=== PATIENT | male | born 1950 | race African-American/Black ===

== ENCOUNTER 2020-03-22 13:42 | Inpatient (IN) | payer BC, OTHER ==
[2020-03-22] MEDS ORDERED: SODIUM CHLORIDE 2,000 ML IV STA (13:49)
[2020-03-22 14:32] LABS: VENOUS BASE EXCESS 0.9 mmol/L (-2-2); VENOUS O2 SATURATION 37.2 % (70-80); VENOUS PH 7.246 (7.310-7.410)
[2020-03-22 14:34] LABS: BASO % 0.4 % (0-2.0); EOS % 1.4 % (0-4.5); HEMATOCRIT 53.3 % (35.4-49); HEMOGLOBIN 16.4 GM/dL (11.7-16.9); LYMPH % 13.3 % (8-40); MCH 29.3 pg (25.7-33.7); MCHC 30.8 g/dl (32.0-35.9); MEAN CELL VOLUME 95.2 fl (80-96); MEAN PLT VOLUME 11.9 fl (7.5-11.1); MONO % 4.6 % (3.8-10.2); NEUT % 80.3 % (42.8-82.8); PLATELET COUNT 214 K/MM3 (134-434); RDW 14.2 % (11.9-15.9); WHITE BLOOD COUNT 10.8 K/mm3 (4.0-10.0)
[2020-03-22 14:35] LABS: VENOUS PCO2 73.2 mmHg (38-52)
[2020-03-22 14:47] LABS: INR 1.04 (0.83-1.09); PROTHROMBIN TIME (PATIENT) 12.8 SEC (9.7-13.0)
[2020-03-22 14:49] LABS: ACTIVATED PTT 28.9 SECONDS (25.2-36.5)
[2020-03-22 14:55] LABS: POTASSIUM 4.9 mmol/L (3.5-5.1)
[2020-03-22 14:57] LABS: ALBUMIN 2.8 g/dl (3.4-5.0); BLOOD UREA NITROGEN 51.9 mg/dL (7-18); CALCIUM 9.4 mg/dL (8.5-10.1)
[2020-03-22 14:58] LABS: BILIRUBIN,DIRECT 0.2 mg/dL (0.0-0.2)
[2020-03-22 15:01] LABS: BILIRUBIN,TOTAL 0.4 mg/dL (0.2-1); CREATININE 2.6 mg/dL (0.55-1.3); TOT PROT 7.8 g/dl (6.4-8.2)
[2020-03-22] MEDS ORDERED: INSULIN REGULAR HUMAN 100 UNITS/ML *VIAL* (FOR IVP) IVPUSH ONE (15:41)
[2020-03-22] MEDS ORDERED: INSULIN REGULAR 100 UNITS in SODIUM CHLORIDE 99 ML IVPB SCH (15:45)
[2020-03-22] MEDS ORDERED: KCL 20 MEQ IV SCH (16:00)
[2020-03-22] MEDS ORDERED: SODIUM CHLORIDE 0.45% IV SCH (16:00)
[2020-03-22 16:47] LABS: CALCIUM 9.4 mg/dL (8.5-10.1); POTASSIUM 4.8 mmol/L (3.5-5.1)
[2020-03-22 16:49] LABS: BLOOD UREA NITROGEN 52.9 mg/dL (7-18)
[2020-03-22 16:52] LABS: CREATININE 2.6 mg/dL (0.55-1.3)
[2020-03-22] MEDS ORDERED: SODIUM CHLORIDE 0.45% IV ONE ×2 (16:52→17:00)
[2020-03-22] MEDS ORDERED: KCL 20 MEQ IV ONE ×2 (16:52→17:00)
[2020-03-22] MEDS ORDERED: chlordiazePOXIDE HCL 25 MG CAPSULE PO PRN (17:55)
[2020-03-22] MEDS ORDERED: D5-1/2NS+20 MEQ KCL - 20 MEQ/1,000 ML INFUS.BAG IV SCH (19:00)
[2020-03-22] MEDS: HEPARIN NA (PORCINE) 5,000 UNITS/ML 1ML VIAL SQ SCH (20:19)
[2020-03-22] MEDS ORDERED: LACTATED RINGERS SOLUTION 1,000 ML with POTASSIUM CHLORIDE 20 MEQ IV ONE ×2 (21:12→21:15)
[2020-03-22] MEDS ORDERED: LACTATED RINGERS SOLUTION 1,000 ML/1,000 ML INFUS.BAG IV SCH (21:15)
[2020-03-22 21:48] LABS: ARTERIAL BLOOD GAS BASE EXCESS 3.4 mmol/L (-2-2); ARTERIAL BLOOD GAS PO2 41.3 mmHg (80-100); ARTERIAL BLOOD GAS pH 7.332 (7.350-7.450)
[2020-03-22 21:50] LABS: ALLENS TEST POSITIVE
[2020-03-22] MEDS ORDERED: ATORVASTATIN CA 10 MG TABLET (FP) PO SCH (22:00)
[2020-03-22] MEDS ORDERED: CHLORHEXIDINE GLUCONATE 4% CLEANSER FOR DECOLONIZATION TP SCH ×2 (22:00)
[2020-03-23] MEDS ORDERED: PREGABALIN 50 MG CAPSULE ONE (00:15)
[2020-03-23] MEDS ORDERED: ATORVASTATIN CA 10 MG TABLET (FP) ONE (00:16)
[2020-03-23] MEDS: PREGABALIN 50 MG CAPSULE PO SCH ×2 (00:18→10:05)
[2020-03-23 01:30] LABS: CALCIUM 8.6 mg/dL (8.5-10.1); POTASSIUM 4.6 mmol/L (3.5-5.1)
[2020-03-23 01:33] LABS: BLOOD UREA NITROGEN 59.2 mg/dL (7-18)
[2020-03-23 01:35] LABS: CREATININE 2.7 mg/dL (0.55-1.3)
[2020-03-23] MEDS ORDERED: INSULIN REGULAR HUMAN 100 UNITS/ML *VIAL* (FOR IVP) IVPUSH ONE (01:44)
[2020-03-23] MEDS ORDERED: INSULIN REGULAR 100 UNITS in SODIUM CHLORIDE 99 ML IVPB SCH (01:45)
[2020-03-23] MEDS: HEPARIN NA (PORCINE) 5,000 UNITS/ML 1ML VIAL SQ SCH ×4 (02:00→22:46)
[2020-03-23] MEDS ORDERED: LACTATED RINGERS SOLUTION 1000 ML INFUS.BAG IV ONE (02:57)
[2020-03-23] MEDS ORDERED: POTASSIUM CHLORIDE 20 MEQ PREMIX IVPB 100 ML IVPB ONE (03:27)
[2020-03-23] MEDS ORDERED: POTASSIUM CHLORIDE IV ONE (03:42)
[2020-03-23] MEDS ORDERED: LACTATED RINGERS IV ONE (03:42)
[2020-03-23 03:59] LABS: ARTERIAL BLD GAS O2 SATURATION 98.2 mmHg (95-98); ARTERIAL BLOOD GAS BASE EXCESS 3.3 mmol/L (-2-2); ARTERIAL BLOOD GAS PO2 126.8 mmHg (80-100); ARTERIAL BLOOD GAS pH 7.322 (7.350-7.450)
[2020-03-23 04:01] LABS: ALLENS TEST POSITIVE
[2020-03-23 04:15] LABS: URINE AMPHETAMINES NEGATIVE ng/ml (CUTOFF=500); URINE BENZODIAZEPINES NEGATIVE ng/ml (CUTOFF=200)
[2020-03-23 04:16] LABS: OPIATES, URI NEGATIVE ng/ml (CUTOFF=300); PHENCYCLIDINE,URINE NEGATIVE ng/ml (CUTOFF=25)
[2020-03-23 04:19] LABS: PH,URINE 5.5 (5.0-8.0); URINE APPEARANCE Clear; URINE BILIRUBIN 2+ (NEGATIVE); URINE COLOR Yellow; URINE GLUCOSE (UA) 2+ (NEGATIVE); URINE KETONE Trace (NEGATIVE); URINE LEUK ESTERASE Negative (NEGATIVE); URINE NITRITE Negative (NEGATIVE); URINE PROTEIN Trace (NEGATIVE); URINE UROBILINOGEN 0.2 mg/dL (0.2-1.0)
[2020-03-23 04:22] LABS: COCAINE, UR NEGATIVE ng/ml (CUTOFF=300); URINE BARBITURATES NEGATIVE ng/ml (CUTOFF=200)
[2020-03-23 04:39] LABS: METHADONE, UR POSITIVE ng/ml (CUTOFF=300)
[2020-03-23] MEDS ORDERED: METHADONE 40 MG, METHADONE 30 MG, METHADONE 5 MG PO SCH (06:00)
[2020-03-23] MEDS ORDERED: LACTATED RINGERS SOLUTION 1,000 ML with POTASSIUM CHLORIDE 20 MEQ IV ONE (06:35)
[2020-03-23] MEDS: MUPIROCIN 2% TOPICAL OINTMENT FOR DECOLONIZATION NS SCH ×2 (06:54→10:02)
[2020-03-23 07:20] LABS: ALLENS TEST POSITIVE; ARTERIAL BLOOD GAS BASE EXCESS 4.6 mmol/L (-2-2); ARTERIAL BLOOD GAS pH 7.334 (7.350-7.450)
[2020-03-23 07:27] LABS: BASO % 0.4 % (0-2.0); EOS % 1.6 % (0-4.5); HEMATOCRIT 46.1 % (35.4-49); HEMOGLOBIN 14.6 GM/dL (11.7-16.9); LYMPH % 17.4 % (8-40); MCH 29.4 pg (25.7-33.7); MCHC 31.8 g/dl (32.0-35.9); MEAN CELL VOLUME 92.5 fl (80-96); MEAN PLT VOLUME 11.7 fl (7.5-11.1); MONO % 11.8 % (3.8-10.2); NEUT % 68.8 % (42.8-82.8); PLATELET COUNT 168 K/MM3 (134-434); RBC 4.98 M/mm3 (4.00-5.60); RDW 13.6 % (11.9-15.9); WHITE BLOOD COUNT 13.4 K/mm3 (4.0-10.0)
[2020-03-23 07:53] LABS: ALBUMIN 2.4 g/dl (3.4-5.0); BLOOD UREA NITROGEN 57.6 mg/dL (7-18); CALCIUM 8.3 mg/dL (8.5-10.1); MAGNESIUM 3.7 mg/dL (1.8-2.4)
[2020-03-23 07:57] LABS: BILIRUBIN,TOTAL 0.3 mg/dL (0.2-1); CREATININE 3.2 mg/dL (0.55-1.3); TOT PROT 7.2 g/dl (6.4-8.2)
[2020-03-23] MEDS ORDERED: SODIUM CHLORIDE 0.45%/POT 20 MEQ/1,000 ML INFUS.BAG IV SCH (08:00)
[2020-03-23] MEDS ORDERED: DEXTROSE 5%-0.45% SALINE 1,000 ML IV SCH (08:45)
[2020-03-23 09:07] LABS: POTASSIUM 8.5 mmol/L (3.5-5.1)
[2020-03-23] MEDS ORDERED: METHADONE HCL 40 MG DISPERSABLE TABLET PO SCH (10:00)
[2020-03-23] MEDS: INSULIN SLIDING SCALE (NOVOLOG) 1 VIAL SQ SCH ×3 (10:07→22:48)
[2020-03-23 10:26] LABS: POTASSIUM 4.7 mmol/L (3.5-5.1)
[2020-03-23 11:28] LABS: ANISOCYTOSIS 2+; MACROCYTOSIS 0; PLATELET ESTIMATE DECREASED; ROULEAU 1+
[2020-03-23 12:22] LABS: CALCIUM 8.7 mg/dL (8.5-10.1)
[2020-03-23 12:24] LABS: BLOOD UREA NITROGEN 59.8 mg/dL (7-18)
[2020-03-23 12:26] LABS: CREATININE 2.9 mg/dL (0.55-1.3)
[2020-03-23] MEDS ORDERED: INSULIN SLIDING SCALE (NOVOLOG) 1 VIAL SQ SCH (16:30)
[2020-03-23] MEDS ORDERED: chlordiazePOXIDE HCL 25 MG CAPSULE PO PRN (17:45)
[2020-03-23] MEDS: DEXTROSE 5%-0.45% SALINE 1,000 ML IV SCH (18:00)
[2020-03-23 19:52] LABS: ARTERIAL BLD GAS O2 SATURATION 89.9 mmHg (95-98); ARTERIAL BLOOD GAS BASE EXCESS 4.1 mmol/L (-2-2); ARTERIAL BLOOD GAS PO2 63.1 mmHg (80-100); ARTERIAL BLOOD GAS pH 7.326 (7.350-7.450)
[2020-03-23] MEDS ORDERED: VANCOMYCIN 1 GM in D5W (PRE-DOCKED) 1,000 MG/250 ML IVPB ONE (19:52)
[2020-03-23 19:55] LABS: ALLENS TEST POSITIVE
[2020-03-23] MEDS ORDERED: PIPERACILLIN/TAZOBACTAM 2.25 GM VIAL IVPB ONE (21:15)
[2020-03-23] MEDS ORDERED: INSULIN (NOVOLOG) ASPART 100 UNITS/ML 10ML VIAL ONE (21:15)
[2020-03-23] MEDS ORDERED: DEXTROSE 5%-WATER - 50 ML IVPB ONE (21:16)
[2020-03-23] MEDS ORDERED: PREGABALIN 50 MG CAPSULE PO SCH (22:00)
[2020-03-23] MEDS ORDERED: MUPIROCIN 2% TOPICAL OINTMENT FOR DECOLONIZATION NS SCH (22:00)
[2020-03-23] MEDS ORDERED: CHLORHEXIDINE GLUCONATE 4% CLEANSER FOR DECOLONIZATION TP SCH (22:00)
[2020-03-23 22:14] LABS: CALCIUM 8.1 mg/dL (8.5-10.1); POTASSIUM 4.9 mmol/L (3.5-5.1)
[2020-03-23 22:16] LABS: BLOOD UREA NITROGEN 60.4 mg/dL (7-18)
[2020-03-23 22:18] LABS: CREATININE 2.5 mg/dL (0.55-1.3)
[2020-03-23] MEDS: ATORVASTATIN CA 10 MG TABLET (FP) PO SCH (22:37)
[2020-03-23] MEDS: PIPERACILLIN/TAZOB 2.25 GM 2.25 GM in DEXTROSE 5%-WATER - 50 ML IVPB SCH (22:41)
[2020-03-24] MEDS ORDERED: PIPERACILLIN/TAZOBACTAM 2.25 GM VIAL IVPB ONE ×4 (04:11→21:31)
[2020-03-24] MEDS ORDERED: DEXTROSE 5%-WATER - 50 ML IVPB ONE ×4 (04:11→21:31)
[2020-03-24] MEDS: PIPERACILLIN/TAZOB 2.25 GM 2.25 GM in DEXTROSE 5%-WATER - 50 ML IVPB SCH ×7 (04:15→22:27)
[2020-03-24] MEDS ORDERED: METHADONE 40 MG, METHADONE 30 MG, METHADONE 5 MG PO SCH (06:00)
[2020-03-24] MEDS: INSULIN SLIDING SCALE (NOVOLOG) 1 VIAL SQ SCH ×4 (06:34→22:36)
[2020-03-24] MEDS: HEPARIN NA (PORCINE) 5,000 UNITS/ML 1ML VIAL SQ SCH ×3 (06:37→22:28)
[2020-03-24] MEDS ORDERED: ALBUTEROL SO4 2.5/IPRATROPIUM 0.5 INH SOL 3 ML VIAL.NEB. NEB PRN ×2 (08:39→23:29)
[2020-03-24 09:44] LABS: BASO % 0.6 % (0-2.0); EOS % 0.2 % (0-4.5); HEMATOCRIT 44.8 % (35.4-49); HEMOGLOBIN 14.1 GM/dL (11.7-16.9); LYMPH % 10.8 % (8-40); MCH 29.2 pg (25.7-33.7); MCHC 31.5 g/dl (32.0-35.9); MEAN CELL VOLUME 92.7 fl (80-96); MEAN PLT VOLUME 12.1 fl (7.5-11.1); MONO % 5.4 % (3.8-10.2); PLATELET COUNT 125 K/MM3 (134-434); RBC 4.84 M/mm3 (4.00-5.60); RDW 13.7 % (11.9-15.9); WHITE BLOOD COUNT 12.2 K/mm3 (4.0-10.0)
[2020-03-24 09:55] LABS: POTASSIUM 4.6 mmol/L (3.5-5.1)
[2020-03-24 10:04] LABS: ALBUMIN 1.8 g/dl (3.4-5.0); BLOOD UREA NITROGEN 67.2 mg/dL (7-18); CALCIUM 7.8 mg/dL (8.5-10.1)
[2020-03-24 10:07] LABS: PHOSPHOROUS 3.4 mg/dL (2.5-4.9)
[2020-03-24 10:09] LABS: BILIRUBIN,TOTAL 0.7 mg/dL (0.2-1); TOT PROT 5.6 g/dl (6.4-8.2)
[2020-03-24] MEDS: DEXTROSE 5%-0.45% SALINE 1,000 ML IV SCH ×2 (10:10→17:17)
[2020-03-24] MEDS ORDERED: INSULIN (NOVOLOG) ASPART 100 UNITS/ML 10ML VIAL ONE (10:57)
[2020-03-24 11:38] LABS: ANISOCYTOSIS 0; HELMET CELLS 0; HOWELL-JOLLY BODIES 0; MACROCYTOSIS 0; OVALOCYTE 0; PLATELET ESTIMATE DECREASED; ROULEAU 0; SICKELED CELLS 0; TARGET CELLS 0; TEAR DROP CELLS 0; TOXIC GRANULATION 0
[2020-03-24] MEDS ORDERED: NALOXONE HCL 0.4 MG/ML VIAL IVPUSH ONE (16:57)
[2020-03-24] MEDS ORDERED: INSULIN (LEVEMIR) 100 UNITS/ML UNITS SQ SCH ×2 (17:13→22:00)
[2020-03-24] MEDS ORDERED: INSULIN (LEVEMIR) 100 UNITS/ML UNITS SQ ONE (17:20)
[2020-03-24] MEDS: ATORVASTATIN CA 10 MG TABLET (FP) PO SCH (22:28)
[2020-03-24] MEDS ORDERED: chlordiazePOXIDE HCL 25 MG CAPSULE PO PRN (23:29)
[2020-03-25] MEDS: PIPERACILLIN/TAZOB 2.25 GM 2.25 GM in DEXTROSE 5%-WATER - 50 ML IVPB SCH ×4 (03:30→21:26)
[2020-03-25] MEDS ORDERED: DEXTROSE 5%-WATER - 50 ML IVPB ONE ×4 (03:52→21:01)
[2020-03-25] MEDS ORDERED: PIPERACILLIN/TAZOBACTAM 2.25 GM VIAL IVPB ONE ×4 (03:52→21:01)
[2020-03-25] MEDS ORDERED: METHADONE 40 MG, METHADONE 30 MG, METHADONE 5 MG PO SCH (06:00)
[2020-03-25] MEDS: DEXTROSE 5%-0.45% SALINE 1,000 ML IV SCH (06:21)
[2020-03-25] MEDS: HEPARIN NA (PORCINE) 5,000 UNITS/ML 1ML VIAL SQ SCH ×2 (06:21→16:02)
[2020-03-25] MEDS: INSULIN SLIDING SCALE (NOVOLOG) 1 VIAL SQ SCH ×4 (06:22→21:30)
[2020-03-25] MEDS ORDERED: INSULIN (LEVEMIR) 100 UNITS/ML UNITS SQ SCH (07:00)
[2020-03-25] MEDS ORDERED: PREGABALIN 50 MG CAPSULE PO SCH (10:00)
[2020-03-25 11:12] LABS: BASO % 0.3 % (0-2.0); EOS % 1.6 % (0-4.5); HEMATOCRIT 42.4 % (35.4-49); HEMOGLOBIN 13.6 GM/dL (11.7-16.9); LYMPH % 14.6 % (8-40); MCH 29.5 pg (25.7-33.7); MCHC 32.1 g/dl (32.0-35.9); MEAN CELL VOLUME 92.1 fl (80-96); MEAN PLT VOLUME 11.5 fl (7.5-11.1); MONO % 4.4 % (3.8-10.2); NEUT % 79.1 % (42.8-82.8); PLATELET COUNT 96 K/MM3 (134-434); RDW 13.6 % (11.9-15.9); WHITE BLOOD COUNT 16.8 K/mm3 (4.0-10.0)
[2020-03-25 11:23] LABS: POTASSIUM 3.9 mmol/L (3.5-5.1)
[2020-03-25 11:25] LABS: CALCIUM 7.3 mg/dL (8.5-10.1)
[2020-03-25 11:26] LABS: ALBUMIN 1.6 g/dl (3.4-5.0); BLOOD UREA NITROGEN 54.6 mg/dL (7-18)
[2020-03-25 11:29] LABS: CREATININE 2.3 mg/dL (0.55-1.3)
[2020-03-25 11:30] LABS: BILIRUBIN,TOTAL 0.5 mg/dL (0.2-1); TOT PROT 5.4 g/dl (6.4-8.2)
[2020-03-25 12:10] LABS: ANISOCYTOSIS 1+; MACROCYTOSIS 0; PLATELET ESTIMATE DECREASED
[2020-03-25 13:45] VITALS: BMI 28.8
[2020-03-25] MEDS: ATORVASTATIN CA 10 MG TABLET (FP) PO SCH (21:29)
[2020-03-25] MEDS: INSULIN (LEVEMIR) 100 UNITS/ML UNITS SQ SCH (22:35)
[2020-03-26] MEDS: DEXTROSE 5%-0.45% SALINE 1,000 ML IV SCH (00:28)
[2020-03-26] MEDS ORDERED: PIPERACILLIN/TAZOBACTAM 2.25 GM VIAL IVPB ONE ×4 (01:27→21:34)
[2020-03-26] MEDS ORDERED: DEXTROSE 5%-WATER - 50 ML IVPB ONE ×4 (01:28→21:34)
[2020-03-26] MEDS: PIPERACILLIN/TAZOB 2.25 GM 2.25 GM in DEXTROSE 5%-WATER - 50 ML IVPB SCH ×4 (02:04→21:45)
[2020-03-26] MEDS: INSULIN (LEVEMIR) 100 UNITS/ML UNITS SQ SCH ×2 (06:53→22:50)
[2020-03-26] MEDS: INSULIN SLIDING SCALE (NOVOLOG) 1 VIAL SQ SCH ×4 (06:54→23:01)
[2020-03-26 08:33] LABS: BASO % 0.5 % (0-2.0); EOS % 2.7 % (0-4.5); HEMATOCRIT 40.5 % (35.4-49); HEMOGLOBIN 13.1 GM/dL (11.7-16.9); LYMPH % 12.2 % (8-40); MCH 29.6 pg (25.7-33.7); MCHC 32.3 g/dl (32.0-35.9); MEAN CELL VOLUME 91.8 fl (80-96); MEAN PLT VOLUME 12.7 fl (7.5-11.1); MONO % 6.7 % (3.8-10.2); NEUT % 77.9 % (42.8-82.8); PLATELET COUNT 104 K/MM3 (134-434); RBC 4.41 M/mm3 (4.00-5.60); RDW 13.5 % (11.9-15.9); WHITE BLOOD COUNT 13.5 K/mm3 (4.0-10.0)
[2020-03-26 09:03] LABS: POTASSIUM 3.9 mmol/L (3.5-5.1)
[2020-03-26 09:05] LABS: BLOOD UREA NITROGEN 41.2 mg/dL (7-18); CALCIUM 7.7 mg/dL (8.5-10.1)
[2020-03-26 09:06] LABS: ALBUMIN 1.5 g/dl (3.4-5.0)
[2020-03-26 09:09] LABS: CREATININE 1.7 mg/dL (0.55-1.3)
[2020-03-26 09:10] LABS: BILIRUBIN,TOTAL 0.7 mg/dL (0.2-1); TOT PROT 5.5 g/dl (6.4-8.2)
[2020-03-26 12:34] LABS: ANISOCYTOSIS 0; MACROCYTOSIS 0; PLATELET ESTIMATE DECREASED
[2020-03-26] MEDS ORDERED: Insulin (LOG) Aspart 100 UNITS/ML VIAL SQ ONE (13:00)
[2020-03-26] MEDS: FOLIC ACID 1 MG TABLET (FP) PO SCH (14:23)
[2020-03-26] MEDS: THIAMINE HCL 100 MG TABLET (FP) PO SCH (14:23)
[2020-03-26] MEDS: MULTIVITAMINS (DAILY MVI) TABLET (FP) PO SCH (14:23)
[2020-03-26] MEDS: DEXTROSE 5%-WATER - 1,000 ML IV SCH ×3 (14:25→20:30)
[2020-03-26] MEDS: Insulin (LOG) Aspart 100 UNITS/ML VIAL SQ SCH (16:39)
[2020-03-26 20:20] LABS: POTASSIUM 3.3 mmol/L (3.5-5.1)
[2020-03-26 20:25] LABS: CALCIUM 7.8 mg/dL (8.5-10.1)
[2020-03-26 20:29] LABS: CREATININE 1.9 mg/dL (0.55-1.3)
[2020-03-26 20:43] LABS: BLOOD UREA NITROGEN 34.2 mg/dL (7-18)
[2020-03-26] MEDS: ATORVASTATIN CA 10 MG TABLET (FP) PO SCH (22:51)
[2020-03-27] MEDS ORDERED: PIPERACILLIN/TAZOBACTAM 2.25 GM VIAL IVPB ONE ×5 (02:12→21:30)
[2020-03-27] MEDS ORDERED: DEXTROSE 5%-WATER - 50 ML IVPB ONE ×4 (02:13→21:30)
[2020-03-27] MEDS: PIPERACILLIN/TAZOB 2.25 GM 2.25 GM in DEXTROSE 5%-WATER - 50 ML IVPB SCH ×4 (02:33→22:44)
[2020-03-27] MEDS: INSULIN (LEVEMIR) 100 UNITS/ML UNITS SQ SCH ×2 (06:57→22:44)
[2020-03-27] MEDS: Insulin (LOG) Aspart 100 UNITS/ML VIAL SQ SCH ×3 (06:58→18:46)
[2020-03-27] MEDS: INSULIN SLIDING SCALE (NOVOLOG) 1 VIAL SQ SCH ×4 (06:58→22:44)
[2020-03-27 07:41] LABS: BASO % 0.5 % (0-2.0); EOS % 4.6 % (0-4.5); HEMATOCRIT 38.9 % (35.4-49); HEMOGLOBIN 12.5 GM/dL (11.7-16.9); LYMPH % 19.8 % (8-40); MCH 29.7 pg (25.7-33.7); MCHC 32.2 g/dl (32.0-35.9); MEAN CELL VOLUME 92.3 fl (80-96); MEAN PLT VOLUME 11.6 fl (7.5-11.1); MONO % 9.3 % (3.8-10.2); NEUT % 65.8 % (42.8-82.8); PLATELET COUNT 93 K/MM3 (134-434); RBC 4.22 M/mm3 (4.00-5.60); RDW 13.5 % (11.9-15.9); WHITE BLOOD COUNT 8.6 K/mm3 (4.0-10.0)
[2020-03-27 07:53] LABS: POTASSIUM 3.1 mmol/L (3.5-5.1)
[2020-03-27 08:15] LABS: CALCIUM 7.5 mg/dL (8.5-10.1)
[2020-03-27 08:16] LABS: BLOOD UREA NITROGEN 24.4 mg/dL (7-18); MAGNESIUM 2.6 mg/dL (1.8-2.4)
[2020-03-27 08:19] LABS: CREATININE 1.5 mg/dL (0.55-1.3); PHOSPHOROUS 1.6 mg/dL (2.5-4.9)
[2020-03-27] MEDS: MULTIVITAMINS (DAILY MVI) TABLET (FP) PO SCH (09:34)
[2020-03-27] MEDS: FOLIC ACID 1 MG TABLET (FP) PO SCH (09:34)
[2020-03-27] MEDS: THIAMINE HCL 100 MG TABLET (FP) PO SCH (09:34)
[2020-03-27] MEDS: ASPIRIN COATED 81 MG TABLET.EC PO SCH (09:34)
[2020-03-27 11:05] LABS: ANISOCYTOSIS 0; MACROCYTOSIS 0; PLATELET ESTIMATE DECREASED
[2020-03-27] MEDS ORDERED: POTASSIUM CHLORIDE TABS 20 MEQ TABLET.ER (FP) PO ONE (11:15)
[2020-03-27] MEDS: KCL 10 MEQ IVPB 10 MEQ/100 ML INFUS.BAG IVPB SCH ×3 (11:28→13:31)
[2020-03-27 13:00] LABS: POTASSIUM 3.4 mmol/L (3.5-5.1)
[2020-03-27 13:01] LABS: CALCIUM 7.6 mg/dL (8.5-10.1)
[2020-03-27 13:02] LABS: BLOOD UREA NITROGEN 21.2 mg/dL (7-18)
[2020-03-27 13:05] LABS: CREATININE 1.4 mg/dL (0.55-1.3)
[2020-03-27] MEDS: NAPH,MB-DB/K PH,MBDB POWDER PACKET PO SCH ×2 (13:31→22:43)
[2020-03-27 19:24] LABS: POTASSIUM 3.8 mmol/L (3.5-5.1)
[2020-03-27 19:25] LABS: CALCIUM 7.5 mg/dL (8.5-10.1)
[2020-03-27 19:26] LABS: BLOOD UREA NITROGEN 18.3 mg/dL (7-18)
[2020-03-27 19:29] LABS: CREATININE 1.4 mg/dL (0.55-1.3)
[2020-03-27] MEDS: ATORVASTATIN CA 10 MG TABLET (FP) PO SCH (22:44)
[2020-03-28] MEDS ORDERED: DEXTROSE 5%-WATER - 50 ML IVPB ONE ×4 (02:03→21:45)
[2020-03-28] MEDS ORDERED: PIPERACILLIN/TAZOBACTAM 2.25 GM VIAL IVPB ONE ×4 (02:03→21:45)
[2020-03-28] MEDS: PIPERACILLIN/TAZOB 2.25 GM 2.25 GM in DEXTROSE 5%-WATER - 50 ML IVPB SCH ×4 (03:00→22:50)
[2020-03-28] MEDS: INSULIN (LEVEMIR) 100 UNITS/ML UNITS SQ SCH ×2 (06:50→22:59)
[2020-03-28] MEDS: Insulin (LOG) Aspart 100 UNITS/ML VIAL SQ SCH ×3 (06:52→17:12)
[2020-03-28] MEDS: INSULIN SLIDING SCALE (NOVOLOG) 1 VIAL SQ SCH ×4 (06:53→22:55)
[2020-03-28 08:12] LABS: POTASSIUM 3.5 mmol/L (3.5-5.1)
[2020-03-28 08:13] LABS: CALCIUM 7.9 mg/dL (8.5-10.1)
[2020-03-28 08:14] LABS: BLOOD UREA NITROGEN 12.5 mg/dL (7-18); MAGNESIUM 2.4 mg/dL (1.8-2.4)
[2020-03-28 08:17] LABS: PHOSPHOROUS 1.7 mg/dL (2.5-4.9)
[2020-03-28 08:18] LABS: CREATININE 1.2 mg/dL (0.55-1.3)
[2020-03-28] MEDS: ASPIRIN COATED 81 MG TABLET.EC PO SCH (09:22)
[2020-03-28] MEDS: THIAMINE HCL 100 MG TABLET (FP) PO SCH (09:22)
[2020-03-28] MEDS: FOLIC ACID 1 MG TABLET (FP) PO SCH (09:22)
[2020-03-28] MEDS: MULTIVITAMINS (DAILY MVI) TABLET (FP) PO SCH (09:22)
[2020-03-28] MEDS ORDERED: DEXTROSE 5%-WATER - 1,000 ML IV SCH (09:30)
[2020-03-28] MEDS ORDERED: SODIUM CHLORIDE 0.45% 1,000 ML IV SCH (10:45)
[2020-03-28] MEDS ORDERED: POTASSIUM PHOSPHATE 15 MM in SODIUM CHLORIDE 250 ML IVPB ONE (11:15)
[2020-03-28 11:57] LABS: POTASSIUM 3.9 mmol/L (3.5-5.1)
[2020-03-28 11:59] LABS: CALCIUM 7.5 mg/dL (8.5-10.1)
[2020-03-28 12:00] LABS: BLOOD UREA NITROGEN 12.5 mg/dL (7-18)
[2020-03-28 12:03] LABS: CREATININE 1.1 mg/dL (0.55-1.3)
[2020-03-28 18:32] LABS: POTASSIUM 3.9 mmol/L (3.5-5.1)
[2020-03-28 18:33] LABS: CALCIUM 7.6 mg/dL (8.5-10.1)
[2020-03-28 18:34] LABS: BLOOD UREA NITROGEN 11.4 mg/dL (7-18)
[2020-03-28 18:37] LABS: CREATININE 1.1 mg/dL (0.55-1.3)
[2020-03-28 22:16] LABS: POTASSIUM 3.6 mmol/L (3.5-5.1)
[2020-03-28 22:17] LABS: CALCIUM 7.4 mg/dL (8.5-10.1)
[2020-03-28 22:19] LABS: BLOOD UREA NITROGEN 11.7 mg/dL (7-18)
[2020-03-28 22:22] LABS: CREATININE 1.1 mg/dL (0.55-1.3)
[2020-03-28] MEDS: ATORVASTATIN CA 10 MG TABLET (FP) PO SCH (23:00)
[2020-03-29] MEDS ORDERED: LACTOBACILLUS ACIDOPHILUS 1 TABLET PO ONE (02:01)
[2020-03-29] MEDS ORDERED: DEXTROSE 5%-WATER - 50 ML IVPB ONE ×2 (02:40→10:09)
[2020-03-29] MEDS ORDERED: PIPERACILLIN/TAZOBACTAM 2.25 GM VIAL IVPB ONE ×2 (02:40→10:09)
[2020-03-29] MEDS: PIPERACILLIN/TAZOB 2.25 GM 2.25 GM in DEXTROSE 5%-WATER - 50 ML IVPB SCH ×2 (03:31→09:40)
[2020-03-29] MEDS: INSULIN (LEVEMIR) 100 UNITS/ML UNITS SQ SCH ×2 (06:40→22:31)
[2020-03-29] MEDS: INSULIN SLIDING SCALE (NOVOLOG) 1 VIAL SQ SCH ×4 (06:40→22:30)
[2020-03-29] MEDS: Insulin (LOG) Aspart 100 UNITS/ML VIAL SQ SCH ×3 (06:43→17:46)
[2020-03-29 07:45] LABS: BASO % 0.3 % (0-2.0); EOS % 2.9 % (0-4.5); HEMATOCRIT 36.3 % (35.4-49); HEMOGLOBIN 11.9 GM/dL (11.7-16.9); LYMPH % 16.9 % (8-40); MCH 29.2 pg (25.7-33.7); MCHC 32.9 g/dl (32.0-35.9); MEAN CELL VOLUME 88.9 fl (80-96); MEAN PLT VOLUME 9.7 fl (7.5-11.1); MONO % 10.2 % (3.8-10.2); NEUT % 69.7 % (42.8-82.8); PLATELET COUNT 130 K/MM3 (134-434); RBC 4.08 M/mm3 (4.00-5.60); RDW 13.4 % (11.9-15.9); WHITE BLOOD COUNT 11.2 K/mm3 (4.0-10.0)
[2020-03-29 07:49] LABS: POTASSIUM 3.2 mmol/L (3.5-5.1)
[2020-03-29 07:57] LABS: ALBUMIN 1.3 g/dl (3.4-5.0); CALCIUM 7.4 mg/dL (8.5-10.1)
[2020-03-29 07:58] LABS: MAGNESIUM 2.1 mg/dL (1.8-2.4)
[2020-03-29 08:01] LABS: PHOSPHOROUS 2.2 mg/dL (2.5-4.9)
[2020-03-29 08:02] LABS: BILIRUBIN,TOTAL 1.4 mg/dL (0.2-1); TOT PROT 5.4 g/dl (6.4-8.2)
[2020-03-29] MEDS ORDERED: POTASSIUM CHLORIDE TABS 20 MEQ TABLET.ER (FP) PO ONE (09:11)
[2020-03-29 09:49] LABS: ANISOCYTOSIS 2+; MACROCYTOSIS 0; PLATELET ESTIMATE DECREASED
[2020-03-29] MEDS ORDERED: POTASSIUM PHOSPHATE 15 MM in SODIUM CHLORIDE 250 ML IVPB ONE (10:00)
[2020-03-29] MEDS ORDERED: DEXTROSE 5%-WATER - 1,000 ML IV SCH (10:30)
[2020-03-29] MEDS: ASPIRIN COATED 81 MG TABLET.EC PO SCH (10:40)
[2020-03-29] MEDS: FOLIC ACID 1 MG TABLET (FP) PO SCH (10:40)
[2020-03-29] MEDS: MULTIVITAMINS (DAILY MVI) TABLET (FP) PO SCH (10:41)
[2020-03-29] MEDS: amLODIPine BESYLATE 10 MG TABLET (FP) PO SCH (10:41)
[2020-03-29] MEDS: THIAMINE HCL 100 MG TABLET (FP) PO SCH (10:42)
[2020-03-29] MEDS: METOPROLOL TARTRATE 50 MG TABLET (FP) PO SCH ×2 (10:44→22:18)
[2020-03-29] MEDS ORDERED: LISINOPRIL 20 MG TABLET PO SCH (11:45)
[2020-03-29] MEDS: AMOX TR/POT CLAV 875MG/125MG TABLETS (FP) PO SCH (17:57)
[2020-03-29 19:50] LABS: POTASSIUM 3.9 mmol/L (3.5-5.1)
[2020-03-29 19:51] LABS: CALCIUM 7.9 mg/dL (8.5-10.1)
[2020-03-29 19:52] LABS: BLOOD UREA NITROGEN 8.8 mg/dL (7-18)
[2020-03-29 19:55] LABS: CREATININE 1.1 mg/dL (0.55-1.3)
[2020-03-29] MEDS: ATORVASTATIN CA 10 MG TABLET (FP) PO SCH (22:18)
[2020-03-30] MEDS ORDERED: DEXTROSE 5%-WATER - 1,000 ML IV SCH ×2 (01:46→10:57)
[2020-03-30] MEDS: INSULIN (LEVEMIR) 100 UNITS/ML UNITS SQ SCH ×2 (06:28→22:43)
[2020-03-30] MEDS: INSULIN SLIDING SCALE (NOVOLOG) 1 VIAL SQ SCH ×4 (06:33→22:48)
[2020-03-30] MEDS: Insulin (LOG) Aspart 100 UNITS/ML VIAL SQ SCH ×3 (06:33→17:10)
[2020-03-30 07:23] LABS: BASO % 0.7 % (0-2.0); HEMATOCRIT 37.3 % (35.4-49); HEMOGLOBIN 12.3 GM/dL (11.7-16.9); LYMPH % 17.3 % (8-40); MCH 29.2 pg (25.7-33.7); MCHC 33.1 g/dl (32.0-35.9); MEAN CELL VOLUME 88.3 fl (80-96); MONO % 7.1 % (3.8-10.2); NEUT % 72.9 % (42.8-82.8); PLATELET COUNT 164 K/MM3 (134-434); RBC 4.22 M/mm3 (4.00-5.60); RDW 13.5 % (11.9-15.9); WHITE BLOOD COUNT 12.6 K/mm3 (4.0-10.0)
[2020-03-30 07:42] LABS: POTASSIUM 3.9 mmol/L (3.5-5.1)
[2020-03-30 07:46] LABS: ALBUMIN 1.4 g/dl (3.4-5.0); BLOOD UREA NITROGEN 8.4 mg/dL (7-18); CALCIUM 7.9 mg/dL (8.5-10.1); MAGNESIUM 1.9 mg/dL (1.8-2.4)
[2020-03-30 07:49] LABS: PHOSPHOROUS 2.7 mg/dL (2.5-4.9)
[2020-03-30 07:50] LABS: BILIRUBIN,TOTAL 0.7 mg/dL (0.2-1)
[2020-03-30 07:51] LABS: TOT PROT 5.7 g/dl (6.4-8.2)
[2020-03-30] MEDS: ASPIRIN COATED 81 MG TABLET.EC PO SCH (09:20)
[2020-03-30] MEDS: AMOX TR/POT CLAV 875MG/125MG TABLETS (FP) PO SCH ×2 (09:20→17:12)
[2020-03-30] MEDS: AMINO ACIDS/PROTEIN HYDROLYS 30 ML LIQUID.PKT PO SCH (09:20)
[2020-03-30] MEDS: METOPROLOL TARTRATE 50 MG TABLET (FP) PO SCH ×2 (09:21→22:43)
[2020-03-30] MEDS: THIAMINE HCL 100 MG TABLET (FP) PO SCH (09:21)
[2020-03-30] MEDS: MULTIVITAMINS (DAILY MVI) TABLET (FP) PO SCH (09:21)
[2020-03-30] MEDS: amLODIPine BESYLATE 10 MG TABLET (FP) PO SCH (09:21)
[2020-03-30] MEDS: FOLIC ACID 1 MG TABLET (FP) PO SCH (09:21)
[2020-03-30] MEDS: LISINOPRIL 20 MG TABLET PO SCH (09:26)
[2020-03-30 10:34] LABS: ANISOCYTOSIS 0; MACROCYTOSIS 0; PLATELET ESTIMATE DECREASED; TOXIC GRANULATION 2+
[2020-03-30] MEDS: HEPARIN NA (PORCINE) 5,000 UNITS/ML 1ML VIAL SQ SCH ×2 (13:03→22:42)
[2020-03-30 14:35] LABS: POTASSIUM 3.4 mmol/L (3.5-5.1)
[2020-03-30 14:37] LABS: BLOOD UREA NITROGEN 11.8 mg/dL (7-18); CALCIUM 7.4 mg/dL (8.5-10.1)
[2020-03-30] MEDS ORDERED: POTASSIUM CHLORIDE TABS 20 MEQ TABLET.ER (FP) PO ONE (15:00)
[2020-03-30] MEDS: POTASSIUM CHLORIDE 10 MEQ in DEXTROSE 5%-WATER - 1,000 ML IV SCH (17:10)
[2020-03-30 22:25] LABS: POTASSIUM 4.1 mmol/L (3.5-5.1)
[2020-03-30 22:28] LABS: CALCIUM 7.4 mg/dL (8.5-10.1)
[2020-03-30 22:29] LABS: BLOOD UREA NITROGEN 12.9 mg/dL (7-18)
[2020-03-30] MEDS: ATORVASTATIN CA 10 MG TABLET (FP) PO SCH (22:43)
[2020-03-31] MEDS: HEPARIN NA (PORCINE) 5,000 UNITS/ML 1ML VIAL SQ SCH ×3 (06:40→21:30)
[2020-03-31] MEDS: POTASSIUM CHLORIDE 10 MEQ in DEXTROSE 5%-WATER - 1,000 ML IV SCH (06:40)
[2020-03-31] MEDS: Insulin (LOG) Aspart 100 UNITS/ML VIAL SQ SCH ×3 (06:46→16:38)
[2020-03-31] MEDS ORDERED: POTASSIUM CHLORIDE 10 MEQ in DEXTROSE 5%-WATER - 1,000 ML IV SCH (06:47)
[2020-03-31] MEDS: INSULIN SLIDING SCALE (NOVOLOG) 1 VIAL SQ SCH ×4 (07:00→21:28)
[2020-03-31] MEDS ORDERED: INSULIN (NOVOLOG) ASPART 100 UNITS/ML 10ML VIAL SQ ONE (08:00)
[2020-03-31] MEDS ORDERED: FUROSEMIDE 40 MG/4 ML INJECTABLE VIAL IVPUSH ONE (08:10)
[2020-03-31 09:45] LABS: BASO % 1.3 % (0-2.0); EOS % 2.7 % (0-4.5); HEMATOCRIT 38.8 % (35.4-49); HEMOGLOBIN 12.5 GM/dL (11.7-16.9); LYMPH % 24.2 % (8-40); MCH 28.7 pg (25.7-33.7); MCHC 32.2 g/dl (32.0-35.9); MEAN CELL VOLUME 89.1 fl (80-96); MEAN PLT VOLUME 10.1 fl (7.5-11.1); MONO % 8.2 % (3.8-10.2); NEUT % 63.6 % (42.8-82.8); PLATELET COUNT 220 K/MM3 (134-434); RBC 4.36 M/mm3 (4.00-5.60); RDW 13.5 % (11.9-15.9); WHITE BLOOD COUNT 13.4 K/mm3 (4.0-10.0)
[2020-03-31] MEDS: LISINOPRIL 20 MG TABLET PO SCH (09:58)
[2020-03-31] MEDS: AMINO ACIDS/PROTEIN HYDROLYS 30 ML LIQUID.PKT PO SCH (09:58)
[2020-03-31] MEDS: ASPIRIN COATED 81 MG TABLET.EC PO SCH (09:58)
[2020-03-31] MEDS: amLODIPine BESYLATE 10 MG TABLET (FP) PO SCH (09:58)
[2020-03-31] MEDS: METOPROLOL TARTRATE 50 MG TABLET (FP) PO SCH ×2 (09:58→21:29)
[2020-03-31] MEDS: FOLIC ACID 1 MG TABLET (FP) PO SCH (09:58)
[2020-03-31] MEDS: THIAMINE HCL 100 MG TABLET (FP) PO SCH (09:58)
[2020-03-31] MEDS: MULTIVITAMINS (DAILY MVI) TABLET (FP) PO SCH (09:58)
[2020-03-31] MEDS: INSULIN (LEVEMIR) 100 UNITS/ML UNITS SQ SCH ×2 (10:00→21:30)
[2020-03-31] MEDS: AMOX TR/POT CLAV 875MG/125MG TABLETS (FP) PO SCH ×2 (10:00→16:54)
[2020-03-31 11:05] LABS: CALCIUM 8.1 mg/dL (8.5-10.1)
[2020-03-31 11:06] LABS: ALBUMIN 1.6 g/dl (3.4-5.0); BLOOD UREA NITROGEN 8.9 mg/dL (7-18); MAGNESIUM 1.8 mg/dL (1.8-2.4)
[2020-03-31 11:09] LABS: CREATININE 0.9 mg/dL (0.55-1.3); PHOSPHOROUS 2.3 mg/dL (2.5-4.9)
[2020-03-31 11:12] LABS: BILIRUBIN,TOTAL 0.6 mg/dL (0.2-1)
[2020-03-31 14:55] LABS: ANISOCYTOSIS 1+; MACROCYTOSIS 1+; PLATELET ESTIMATE NORMAL
[2020-03-31] MEDS: ATORVASTATIN CA 10 MG TABLET (FP) PO SCH (21:29)
[2020-04-01] MEDS: HEPARIN NA (PORCINE) 5,000 UNITS/ML 1ML VIAL SQ SCH ×3 (07:07→21:14)
[2020-04-01] MEDS: INSULIN (LEVEMIR) 100 UNITS/ML UNITS SQ SCH ×2 (07:08→21:13)
[2020-04-01] MEDS: INSULIN SLIDING SCALE (NOVOLOG) 1 VIAL SQ SCH ×4 (07:09→21:12)
[2020-04-01] MEDS: Insulin (LOG) Aspart 100 UNITS/ML VIAL SQ SCH ×3 (07:11→16:36)
[2020-04-01 07:47] LABS: BASO % 0.9 % (0-2.0); EOS % 3.3 % (0-4.5); HEMATOCRIT 36.3 % (35.4-49); HEMOGLOBIN 12.1 GM/dL (11.7-16.9); LYMPH % 25.6 % (8-40); MCH 29.4 pg (25.7-33.7); MCHC 33.5 g/dl (32.0-35.9); MEAN CELL VOLUME 87.8 fl (80-96); MEAN PLT VOLUME 9.6 fl (7.5-11.1); MONO % 5.2 % (3.8-10.2); PLATELET COUNT 256 K/MM3 (134-434); RBC 4.13 M/mm3 (4.00-5.60); RDW 13.3 % (11.9-15.9); WHITE BLOOD COUNT 14.2 K/mm3 (4.0-10.0)
[2020-04-01 08:20] LABS: POTASSIUM 3.7 mmol/L (3.5-5.1)
[2020-04-01 08:25] LABS: CALCIUM 7.2 mg/dL (8.5-10.1)
[2020-04-01 08:26] LABS: ALBUMIN 1.5 g/dl (3.4-5.0); BLOOD UREA NITROGEN 11.6 mg/dL (7-18); MAGNESIUM 1.6 mg/dL (1.8-2.4)
[2020-04-01 08:29] LABS: BILIRUBIN,TOTAL 0.4 mg/dL (0.2-1); CREATININE 0.9 mg/dL (0.55-1.3); PHOSPHOROUS 3.1 mg/dL (2.5-4.9)
[2020-04-01] MEDS ORDERED: MAGNESIUM SULF 50% (8.12 MEQ/2 ML-1 GM VIAL) IVPB ONE (09:58)
[2020-04-01] MEDS: METOPROLOL TARTRATE 50 MG TABLET (FP) PO SCH ×2 (10:14→21:14)
[2020-04-01] MEDS: amLODIPine BESYLATE 10 MG TABLET (FP) PO SCH (10:14)
[2020-04-01] MEDS: ASPIRIN COATED 81 MG TABLET.EC PO SCH (10:14)
[2020-04-01] MEDS: FOLIC ACID 1 MG TABLET (FP) PO SCH (10:14)
[2020-04-01] MEDS: THIAMINE HCL 100 MG TABLET (FP) PO SCH (10:14)
[2020-04-01] MEDS: LISINOPRIL 20 MG TABLET PO SCH (10:14)
[2020-04-01] MEDS: AMINO ACIDS/PROTEIN HYDROLYS 30 ML LIQUID.PKT PO SCH (10:14)
[2020-04-01] MEDS: MULTIVITAMINS (DAILY MVI) TABLET (FP) PO SCH (10:14)
[2020-04-01] MEDS: AMOX TR/POT CLAV 875MG/125MG TABLETS (FP) PO SCH (10:15)
[2020-04-01] MEDS ORDERED: MAGNESIUM OXIDE 400 MG TABLET (FP) PO ONE (14:17)
[2020-04-01] MEDS: ATORVASTATIN CA 10 MG TABLET (FP) PO SCH (21:14)
[2020-04-02] MEDS: HEPARIN NA (PORCINE) 5,000 UNITS/ML 1ML VIAL SQ SCH ×3 (05:55→21:37)
[2020-04-02] MEDS: INSULIN (LEVEMIR) 100 UNITS/ML UNITS SQ SCH ×2 (06:43→21:38)
[2020-04-02] MEDS: Insulin (LOG) Aspart 100 UNITS/ML VIAL SQ SCH ×3 (06:45→17:40)
[2020-04-02] MEDS: INSULIN SLIDING SCALE (NOVOLOG) 1 VIAL SQ SCH ×4 (06:45→21:39)
[2020-04-02 08:52] LABS: POTASSIUM 4.2 mmol/L (3.5-5.1)
[2020-04-02 09:08] LABS: ALBUMIN 1.6 g/dl (3.4-5.0); BLOOD UREA NITROGEN 10.5 mg/dL (7-18); MAGNESIUM 2.1 mg/dL (1.8-2.4)
[2020-04-02 09:10] LABS: CREATININE 0.8 mg/dL (0.55-1.3); PHOSPHOROUS 2.7 mg/dL (2.5-4.9)
[2020-04-02 09:11] LABS: BILIRUBIN,TOTAL 0.5 mg/dL (0.2-1); TOT PROT 6.2 g/dl (6.4-8.2)
[2020-04-02 10:01] LABS: BASO % 0.5 % (0-2.0); EOS % 3.2 % (0-4.5); HEMATOCRIT 37.4 % (35.4-49); HEMOGLOBIN 12.1 GM/dL (11.7-16.9); LYMPH % 19.5 % (8-40); MCH 28.6 pg (25.7-33.7); MCHC 32.2 g/dl (32.0-35.9); MEAN CELL VOLUME 88.8 fl (80-96); MEAN PLT VOLUME 9.4 fl (7.5-11.1); MONO % 5.3 % (3.8-10.2); NEUT % 71.5 % (42.8-82.8); PLATELET COUNT 301 K/MM3 (134-434); RBC 4.22 M/mm3 (4.00-5.60); RDW 13.3 % (11.9-15.9)
[2020-04-02] MEDS: FOLIC ACID 1 MG TABLET (FP) PO SCH (11:25)
[2020-04-02] MEDS: amLODIPine BESYLATE 10 MG TABLET (FP) PO SCH (11:25)
[2020-04-02] MEDS: AMINO ACIDS/PROTEIN HYDROLYS 30 ML LIQUID.PKT PO SCH (11:25)
[2020-04-02] MEDS: MULTIVITAMINS (DAILY MVI) TABLET (FP) PO SCH (11:25)
[2020-04-02] MEDS: THIAMINE HCL 100 MG TABLET (FP) PO SCH (11:25)
[2020-04-02] MEDS: LISINOPRIL 20 MG TABLET PO SCH (11:25)
[2020-04-02] MEDS: ASPIRIN COATED 81 MG TABLET.EC PO SCH (11:25)
[2020-04-02] MEDS: METOPROLOL TARTRATE 50 MG TABLET (FP) PO SCH ×2 (11:25→21:37)
[2020-04-02] MEDS ORDERED: DEXTROSE 5%-WATER - 50 ML IVPB ONE ×2 (12:31→17:00)
[2020-04-02] MEDS ORDERED: PIPERACILLIN/TAZOBACTAM 3.375 GM VIAL IVPB ONE ×2 (12:31→17:00)
[2020-04-02] MEDS: PIPERACILLIN/TAZOB 3.375 GM 3.375 GM in DEXTROSE 5%-WATER - 50 ML IVPB SCH ×2 (12:42→17:40)
[2020-04-02] MEDS: ATORVASTATIN CA 10 MG TABLET (FP) PO SCH (21:37)
[2020-04-03] MEDS ORDERED: DEXTROSE 5%-WATER - 50 ML IVPB ONE ×3 (00:13→17:30)
[2020-04-03] MEDS ORDERED: PIPERACILLIN/TAZOBACTAM 3.375 GM VIAL IVPB ONE ×3 (00:13→17:29)
[2020-04-03] MEDS: PIPERACILLIN/TAZOB 3.375 GM 3.375 GM in DEXTROSE 5%-WATER - 50 ML IVPB SCH ×3 (01:13→18:07)
[2020-04-03] MEDS: HEPARIN NA (PORCINE) 5,000 UNITS/ML 1ML VIAL SQ SCH ×3 (06:11→21:20)
[2020-04-03] MEDS: INSULIN (LEVEMIR) 100 UNITS/ML UNITS SQ SCH ×3 (06:18→22:00)
[2020-04-03] MEDS: INSULIN SLIDING SCALE (NOVOLOG) 1 VIAL SQ SCH ×5 (06:19→22:00)
[2020-04-03] MEDS: Insulin (LOG) Aspart 100 UNITS/ML VIAL SQ SCH ×3 (06:19→17:56)
[2020-04-03] MEDS: THIAMINE HCL 100 MG TABLET (FP) PO SCH (09:35)
[2020-04-03] MEDS: METOPROLOL TARTRATE 50 MG TABLET (FP) PO SCH ×2 (09:35→21:21)
[2020-04-03] MEDS: LISINOPRIL 20 MG TABLET PO SCH (09:35)
[2020-04-03] MEDS: ASPIRIN COATED 81 MG TABLET.EC PO SCH (09:35)
[2020-04-03] MEDS: MULTIVITAMINS (DAILY MVI) TABLET (FP) PO SCH (09:35)
[2020-04-03] MEDS: amLODIPine BESYLATE 10 MG TABLET (FP) PO SCH (09:35)
[2020-04-03] MEDS: FOLIC ACID 1 MG TABLET (FP) PO SCH (09:35)
[2020-04-03] MEDS: AMINO ACIDS/PROTEIN HYDROLYS 30 ML LIQUID.PKT PO SCH (09:36)
[2020-04-03 09:55] LABS: BASO % 0.7 % (0-2.0); EOS % 4.6 % (0-4.5); HEMOGLOBIN 12.1 GM/dL (11.7-16.9); LYMPH % 23.6 % (8-40); MCH 29.2 pg (25.7-33.7); MCHC 32.9 g/dl (32.0-35.9); MEAN CELL VOLUME 88.8 fl (80-96); MEAN PLT VOLUME 9.1 fl (7.5-11.1); MONO % 7.7 % (3.8-10.2); NEUT % 63.4 % (42.8-82.8); PLATELET COUNT 325 K/MM3 (134-434); RBC 4.16 M/mm3 (4.00-5.60); RDW 13.8 % (11.9-15.9); WHITE BLOOD COUNT 12.1 K/mm3 (4.0-10.0)
[2020-04-03 10:11] LABS: POTASSIUM 4.8 mmol/L (3.5-5.1)
[2020-04-03 10:14] LABS: CALCIUM 8.1 mg/dL (8.5-10.1)
[2020-04-03 10:15] LABS: ALBUMIN 1.7 g/dl (3.4-5.0); BLOOD UREA NITROGEN 11.4 mg/dL (7-18)
[2020-04-03 10:16] LABS: MAGNESIUM 1.8 mg/dL (1.8-2.4)
[2020-04-03 10:18] LABS: PHOSPHOROUS 3.2 mg/dL (2.5-4.9)
[2020-04-03 10:20] LABS: TOT PROT 6.5 g/dl (6.4-8.2)
[2020-04-03 10:23] LABS: N-TERMINAL BNP 526.8 pg/ml (5-125)
[2020-04-03 12:24] LABS: ALBUMIN 1.6 g/dl (3.4-5.0)
[2020-04-03 12:27] LABS: BILIRUBIN,DIRECT 0.3 mg/dL (0.0-0.2)
[2020-04-03 12:29] LABS: BILIRUBIN,TOTAL 0.4 mg/dL (0.2-1); TOT PROT 6.4 g/dl (6.4-8.2)
[2020-04-04] MEDS ORDERED: PIPERACILLIN/TAZOBACTAM 3.375 GM VIAL IVPB ONE ×3 (00:52→17:18)
[2020-04-04] MEDS ORDERED: DEXTROSE 5%-WATER - 50 ML IVPB ONE ×3 (00:53→17:18)
[2020-04-04] MEDS: PIPERACILLIN/TAZOB 3.375 GM 3.375 GM in DEXTROSE 5%-WATER - 50 ML IVPB SCH ×3 (01:22→18:49)
[2020-04-04] MEDS: INSULIN SLIDING SCALE (NOVOLOG) 1 VIAL SQ SCH ×4 (06:42→21:45)
[2020-04-04] MEDS: HEPARIN NA (PORCINE) 5,000 UNITS/ML 1ML VIAL SQ SCH ×3 (06:42→21:48)
[2020-04-04] MEDS: INSULIN (LEVEMIR) 100 UNITS/ML UNITS SQ SCH ×2 (06:42→21:43)
[2020-04-04] MEDS: Insulin (LOG) Aspart 100 UNITS/ML VIAL SQ SCH ×3 (06:44→18:48)
[2020-04-04 07:26] LABS: BASO % 0.7 % (0-2.0); EOS % 5.7 % (0-4.5); HEMOGLOBIN 11.9 GM/dL (11.7-16.9); LYMPH % 24.7 % (8-40); MCH 29.6 pg (25.7-33.7); MEAN CELL VOLUME 87.1 fl (80-96); MEAN PLT VOLUME 8.9 fl (7.5-11.1); MONO % 8.3 % (3.8-10.2); NEUT % 60.6 % (42.8-82.8); PLATELET COUNT 329 K/MM3 (134-434); RBC 4.02 M/mm3 (4.00-5.60); RDW 13.5 % (11.9-15.9); WHITE BLOOD COUNT 11.1 K/mm3 (4.0-10.0)
[2020-04-04 07:36] LABS: INR 1.04 (0.83-1.09); PROTHROMBIN TIME (PATIENT) 12.8 SEC (9.7-13.0)
[2020-04-04 07:55] LABS: POTASSIUM 3.9 mmol/L (3.5-5.1)
[2020-04-04 07:58] LABS: ALBUMIN 1.7 g/dl (3.4-5.0); BLOOD UREA NITROGEN 8.2 mg/dL (7-18); CALCIUM 7.9 mg/dL (8.5-10.1); MAGNESIUM 1.8 mg/dL (1.8-2.4)
[2020-04-04 08:01] LABS: CREATININE 0.9 mg/dL (0.55-1.3)
[2020-04-04 08:03] LABS: BILIRUBIN,TOTAL 0.6 mg/dL (0.2-1); TOT PROT 6.4 g/dl (6.4-8.2)
[2020-04-04] MEDS: AMINO ACIDS/PROTEIN HYDROLYS 30 ML LIQUID.PKT PO SCH (08:07)
[2020-04-04] MEDS: FOLIC ACID 1 MG TABLET (FP) PO SCH (12:07)
[2020-04-04] MEDS: METOPROLOL TARTRATE 50 MG TABLET (FP) PO SCH ×2 (12:08→21:44)
[2020-04-04] MEDS: amLODIPine BESYLATE 10 MG TABLET (FP) PO SCH (12:12)
[2020-04-04] MEDS: ASPIRIN COATED 81 MG TABLET.EC PO SCH (12:12)
[2020-04-04] MEDS: LISINOPRIL 20 MG TABLET PO SCH (12:12)
[2020-04-04] MEDS: MULTIVITAMINS (DAILY MVI) TABLET (FP) PO SCH (12:12)
[2020-04-04] MEDS: THIAMINE HCL 100 MG TABLET (FP) PO SCH (12:12)
[2020-04-04 19:07] LABS: HEP B CORE AB, TOT Positive (Negative)
[2020-04-05] MEDS: PIPERACILLIN/TAZOB 3.375 GM 3.375 GM in DEXTROSE 5%-WATER - 50 ML IVPB SCH ×2 (03:11→10:29)
[2020-04-05] MEDS: HEPARIN NA (PORCINE) 5,000 UNITS/ML 1ML VIAL SQ SCH ×2 (06:30→13:36)
[2020-04-05] MEDS: INSULIN (LEVEMIR) 100 UNITS/ML UNITS SQ SCH (06:31)
[2020-04-05] MEDS: Insulin (LOG) Aspart 100 UNITS/ML VIAL SQ SCH ×2 (07:35→11:56)
[2020-04-05] MEDS: INSULIN SLIDING SCALE (NOVOLOG) 1 VIAL SQ SCH ×2 (07:36→11:55)
[2020-04-05] MEDS ORDERED: DEXTROSE 5%-WATER - 50 ML IVPB ONE (09:49)
[2020-04-05] MEDS ORDERED: PIPERACILLIN/TAZOBACTAM 3.375 GM VIAL IVPB ONE (09:49)
[2020-04-05] MEDS: AMINO ACIDS/PROTEIN HYDROLYS 30 ML LIQUID.PKT PO SCH (10:29)
[2020-04-05] MEDS: ASPIRIN COATED 81 MG TABLET.EC PO SCH (10:29)
[2020-04-05] MEDS: amLODIPine BESYLATE 10 MG TABLET (FP) PO SCH (10:29)
[2020-04-05] MEDS: METOPROLOL TARTRATE 50 MG TABLET (FP) PO SCH (10:29)
[2020-04-05] MEDS: FOLIC ACID 1 MG TABLET (FP) PO SCH (10:29)
[2020-04-05] MEDS: LISINOPRIL 20 MG TABLET PO SCH (10:29)
[2020-04-05] MEDS: MULTIVITAMINS (DAILY MVI) TABLET (FP) PO SCH (10:29)
[2020-04-05] MEDS: THIAMINE HCL 100 MG TABLET (FP) PO SCH (10:29)
[2020-04-05 12:58] VITALS: TEMP 98
[2020-04-05 14:54] VITALS: BP 130/70; PULSE 76
== END 2020-04-05 15:27 | disposition home or self-care (01) | DRG 637 ==
LOC: JER 13:42 → JERBED 19:05 → JICU 03-23 01:23 → J8W 03-23 17:30 → J4W 03-24 23:55
PROVIDERS: ADMIT Internal Medicine Pulmonary Disease
PROC: 06HM33Z Insertion of Infusion Device into Right Femoral Vein, Percutaneous Approach (ICD-10-PCS; principal; 2020-03-26)
PROC: B54BZZA Ultrasonography of Right Lower Extremity Veins, Guidance (ICD-10-PCS; 2020-03-26)
PROC: HZ95ZZZ Pharmacotherapy for Substance Abuse Treatment, Naloxone (ICD-10-PCS; 2020-03-26)
PROC: HZ2ZZZZ Detoxification Services for Substance Abuse Treatment (ICD-10-PCS; 2020-03-26)
DX: E11.10 Type 2 diabetes mellitus with ketoacidosis without coma (principal); J69.0 Pneumonitis due to inhalation of food and vomit; J96.01 Acute respiratory failure with hypoxia; E87.0 Hyperosmolality and hypernatremia; F10.230 Alcohol dependence with withdrawal, uncomplicated; F11.20 Opioid dependence, uncomplicated; N17.9 Acute kidney failure, unspecified; K86.2 Cyst of pancreas; E11.65 Type 2 diabetes mellitus with hyperglycemia; D69.6 Thrombocytopenia, unspecified; I25.10 Atherosclerotic heart disease of native coronary artery without angina pectoris; R41.82 Altered mental status, unspecified; Z91.14 Patient's other noncompliance with medication regimen; E86.0 Dehydration; E87.5 Hyperkalemia; T40.2X4A Poisoning by other opioids, undetermined, initial encounter; I10 Essential (primary) hypertension; R74.01 Elevation of levels of liver transaminase levels; F17.210 Nicotine dependence, cigarettes, uncomplicated; E11.42 Type 2 diabetes mellitus with diabetic polyneuropathy; R94.5 Abnormal results of liver function studies; K76.0 Fatty (change of) liver, not elsewhere classified
CPT/HCPCS: 36415; 36600; 70450-TC; 71045-TC-FY; 71046-TC-FY; 74181-TC; 76705-TC; 80048; 80053; 80074; 80076; 80307; 81003; 82010; 82248; 82550; 82553; 82728; 82803; 82947; 82962; 82977; 83036; 83605; 83615; 83735; 83880; 83930; 84100; 84484; 85025; 85379; 85610; 85730; 86022; 86140; 86704; 86706; 86707; 86708; 86709; 87040; 87045; 87046; 87086; 87205; 87324; 87340; 87449; 87522; 87902; 93005; 93010; 94010; 94640; 97116-GP; 97162-GP; 99285-25; C9803; J1644; U0003